=== PATIENT | female | born 1985 | race Two or more races ===

== ENCOUNTER → 2018-02-23 | Outpatient (CLI) | payer SELFPAY | END | disposition home or self-care (01) | LOC: US 15:32 | DX: N92.5 Other specified irregular menstruation (principal); R10.2 Pelvic and perineal pain | CPT/HCPCS: 76856 ==

== ENCOUNTER → 2018-04-07 | Day surgery (SDC) | payer SELFPAY ==
[~2018-04-07] MED LIST: IV RINGERS,LACTATED 1000ML 1,000 ML IV; LIDOCAINE 1% PF 2 ML VIAL. ID; LIDOCAINE 2% PF Vial for OR 5 ML VIAL.; MIDAZOLAM HCL/PF 2 MG/2 ML VIAL. IV; MORPHINE SULFATE 4 MG/ML DISP.SYRIN. IV; ONDANSETRON PF 4 MG/2 ML VIAL. IV; PROCHLORPERAZINE 10 MG/2 ML VIAL. IV; PROPOFOL 20 ML IV; fentaNYL PF VIAL 100 MCG/2 ML VIAL IV
[2018-04-07 09:14] LABS: NEG OBC UR NEG; POS OBC UR POS; U PREG PATIENT NEGATIVE (NEG)
[2018-04-07] MEDS: IV RINGERS,LACTATED 1000ML 1,000 ML IV (09:16)
== END | disposition home or self-care (01) ==
LOC: SURG 08:39
DX: K21.9 Gastro-esophageal reflux disease without esophagitis (principal); Z87.19 Personal history of other diseases of the digestive system; Z79.899 Other long term (current) drug therapy
CPT/HCPCS: 43235; 81025; J2704

== ENCOUNTER → 2018-04-09 | Day surgery (SDC) | payer SELFPAY ==
[~2018-04-09] MED LIST changes: +DEXAMETHASONE SOD PHOS 20 MG/5 ML VIAL.; -IV RINGERS,LACTATED 1000ML 1,000 ML IV; +KETOROLAC 30 MG/ML INJ FOR OR. INJ; -MIDAZOLAM HCL/PF 2 MG/2 ML VIAL. IV; +MORPHINE SULFATE 2 MG/ML DISP.SYRIN. IV; -MORPHINE SULFATE 4 MG/ML DISP.SYRIN. IV; +ONDANSETRON PF 4 MG/2 ML VIAL.; +ePHEDrine PF IN SALINE 50 MG/5 ML DISP.SYRIN IV; +fentaNYL PF VIAL 100 MCG/2 ML VIAL
[2018-04-09 11:13] LABS: NEG OBC UR NEG; POS OBC UR POS; U PREG PATIENT NEGATIVE (NEG)
[2018-04-09 11:14] LABS: ADD MAN DIFF? NO
[2018-04-09 11:16] LABS: BASO % 1 % (0-3); EOS % 1 % (0-3); HEMATOCRIT 35.7 % (36.0-47.0); HEMOGLOBIN 12.3 g/dL (12.0-15.5); LYMPH % 28 % (24-48); MEAN CORPUSCULAR HEMOGLOBIN 29 pg (25-35); MEAN CORPUSCULAR HGB CONC 35 g/dL (31-37); MEAN CORPUSCULAR VOLUME 83 fL (79-100); MONO # 0.5 x10^3/uL (0.0-1.1); MONO % 8 % (0-9); NEUT # 4.4 x10^3uL (1.8-7.7); NEUT % 63 % (31-73); PLATELET COUNT 253 x10^3/uL (140-400); RED BLOOD COUNT 4.32 x10^6/uL (3.50-5.40); RED CELL DISTRIBUTION WIDTH 14.9 % (11.5-14.5)
[2018-04-09] MEDS: IV RINGERS,LACTATED 1000ML 1,000 ML IV (11:26)
== END | disposition home or self-care (01) ==
LOC: SURG 10:21
DX: D25.9 Leiomyoma of uterus, unspecified (principal); K21.9 Gastro-esophageal reflux disease without esophagitis; F41.9 Anxiety disorder, unspecified
CPT/HCPCS: 36415; 81025; 85025; 88305; A7015; J0690; J1100; J1885; J2405; J2704; J3010

== ENCOUNTER → 2018-06-15 | Outpatient (CLI) | payer SELFPAY | END | disposition home or self-care (01) | LOC: KCIC 09:06 | DX: M41.84 Other forms of scoliosis, thoracic region (principal); K21.9 Gastro-esophageal reflux disease without esophagitis; Z87.19 Personal history of other diseases of the digestive system | CPT/HCPCS: 71046 ==

== ENCOUNTER → 2018-07-17 | Outpatient (CLI) | payer SELFPAY ==
[2018-04-09 13:45] VITALS: BP 107/72
[~2018-07-17] MED LIST changes: -DEXAMETHASONE SOD PHOS 20 MG/5 ML VIAL.; +IBUP-1027 PO; -KETOROLAC 30 MG/ML INJ FOR OR. INJ; -LIDOCAINE 1% PF 2 ML VIAL. ID; -LIDOCAINE 2% PF Vial for OR 5 ML VIAL.; -MORPHINE SULFATE 2 MG/ML DISP.SYRIN. IV; +OMEP20CA9 PO; +OMEP40CA5 PO; -ONDANSETRON PF 4 MG/2 ML VIAL.; -ONDANSETRON PF 4 MG/2 ML VIAL. IV; -PROCHLORPERAZINE 10 MG/2 ML VIAL. IV; -PROPOFOL 20 ML IV; -ePHEDrine PF IN SALINE 50 MG/5 ML DISP.SYRIN IV; -fentaNYL PF VIAL 100 MCG/2 ML VIAL; -fentaNYL PF VIAL 100 MCG/2 ML VIAL IV
--- NOTE | 2018-07-18 07:45 | RAD ---
EXAM: Pelvic sonogram. HISTORY: Pelvic pain. TECHNIQUE: Sonographic imaging of the pelvis was performed. COMPARISON: 02/23/2018. FINDINGS: The uterus measures 8.6 x 5.8 x 4.0 cm. The endometrial stripe is thickened, measuring 18 mm. The right ovary measures 3.4 x 2.7 x 1.8 cm. The left ovary measures 3.3 x 2.0 x 1.7 cm. There is normal blood flow within both ovaries. IMPRESSION: 1. Prominent endometrial stripe, measuring 18 mm. This can be within normal limits for a premenopausal female. 2. Otherwise, unremarkable pelvic sonogram. Electronically signed by: Gena Montanez MD (07/18/2018 7:42 AM) [facility]
== END | disposition home or self-care (01) ==
LOC: US 16:00
PROVIDERS: ATTEND Obstetrics & Gynecology
DX: R10.2 Pelvic and perineal pain (principal); K21.9 Gastro-esophageal reflux disease without esophagitis; Z87.19 Personal history of other diseases of the digestive system; Z79.899 Other long term (current) drug therapy
CPT/HCPCS: 76856

== ENCOUNTER → 2018-10-09 | Outpatient (CLI) | payer SELFPAY ==
[2018-04-09 13:45] VITALS: BP 107/72
[~2018-10-09] MED LIST changes: +ALBUTEROL SULFATE 2.5 MG/3 ML NEBU. NEB ONE; +METHACHOLINE CHLORIDE 100 MG VIAL.NEB. INH ONE
--- NOTE | 2018-10-21 14:01 | RESP ---
DATE OF SERVICE: 10/09/2018 ATTENDING PHYSICIAN: Dr. Meek Heller. The patient underwent methacholine challenge test at [facility]. The patient's baseline spirometry was within normal limits with an FEV1 of 3.0, which is 111% predicted. Methacholine challenge test protocol was used and different concentrations of the drug starting from 0.025, then 0.25 and then 2.5 and then 10 mg dose was used. The patient's FEV1 did not significantly change throughout all the concentrations of methacholine. The patient had clear lungs throughout with no evidence of bronchospasm and no complaint of dyspnea or any adverse reaction to methacholine challenge test. IMPRESSION: Normal methacholine challenge test with no evidence of any reactive airway disease. ANGIE WHEAT MD DR: YOSELIN/elise JOB#: [id number] / [id number]
--- NOTE | 2018-10-21 23:13 | RESP ---
DATE OF SERVICE: 10/09/2018 ATTENDING PHYSICIAN: Dr. Meek Heller. The patient's FVC was 3.73, which is 117% predicted, FEV1 3.0, which is 111% predicted. The FEV1/FVC ratio was normal. Post-bronchodilator, there was no response. Lung volumes were not performed and diffusion capacity was not performed. IMPRESSION: 1. Normal spirometry with no evidence of any obstructive airway disease. 2. No response to bronchodilators. ANGIE WHEAT MD DR: YOSELIN/elise JOB#: [id number] / [id number]
== END | disposition home or self-care (01) ==
LOC: PF 07:34 → MERGE 08:00
PROVIDERS: ATTEND Internal Medicine Pulmonary Disease
DX: J45.909 Unspecified asthma, uncomplicated (principal)
CPT/HCPCS: 94070; 94640; J7613; J7674

== ENCOUNTER → 2019-01-14 | Outpatient (CLI) | payer OTHER ==
[2018-04-09 13:45] VITALS: BP 107/72
[~2019-01-14] MED LIST changes: -ALBUTEROL SULFATE 2.5 MG/3 ML NEBU. NEB ONE; -METHACHOLINE CHLORIDE 100 MG VIAL.NEB. INH ONE
--- NOTE | 2019-01-14 10:28 | KCIC ---
Indication:Pelvic pain, dysfunctional uterine bleeding. TECHNIQUE: Transabdominal ultrasound with Grayscale, color Doppler and spectral waveform images of the pelvis obtained. COMPARISON: Previous exam from 07/13/2018 FINDINGS: The uterus is anteverted and measures 7.3 x 5.0 x 3.3 cm. The endometrial stripe measures 3 mm in thickness and is within normal limits. No free pelvic fluid. Right ovary measures 3.2 x 1.4 x 1.7 cm and shows blood flow. Left ovary measures 2.4 x 1.3 x 1.3 cm and shows blood flow. IMPRESSION: No acute findings. Electronically signed by: Mateo Al DO (01/14/2019 10:25 AM) [id number]
== END | disposition home or self-care (01) ==
LOC: KCIC US 09:46
PROVIDERS: ATTEND Obstetrics & Gynecology
DX: N93.8 Other specified abnormal uterine and vaginal bleeding (principal); R10.2 Pelvic and perineal pain
CPT/HCPCS: 76856